=== PATIENT | male | born 1985 | race Two or more races ===

== ENCOUNTER 2020-05-19 19:55 | Emergency (ER) | payer MEDICAID ==
[~2020-05-19] VITALS: Ht 165.1 cm; Wt 71.0 kg
[2020-05-19 20:59] LABS: BASOPHILS % (AUTO) 0.8 % (0-1); EOSINOPHILS # (AUTO) 0.1 X10'3 (0-0.9); EOSINOPHILS % (AUTO) 1.1 % (0-6); HEMATOCRIT 46.2 % (42.0-52.0); HEMOGLOBIN 15.7 g/dl (14.0-17.9); LYMPHOCYTES % (AUTO) 43.5 % (21-51); MEAN CORPUSCULAR HEMOGLOBIN 31.4 PG (27.0-31.0); MEAN CORPUSCULAR HGB CONC 34.1 g/dL (33.0-36.5); MEAN CORPUSCULAR VOLUME 92.1 FL (78-98); MEAN PLATELET VOLUME 8.1 FL (7.4-10.4); MONOCYTES # (AUTO) 0.5 X10'3 (0-0.9); MONOCYTES % (AUTO) 10.3 % (2-12); NEUTROPHILS % (AUTO) 44.3 % (42-75); PLATELET COUNT 249 X10'3 (140-440); RED BLOOD COUNT 5.01 X10'6 (4.70-6.10); RED CELL DISTRIBUTION WIDTH 13.4 % (11.5-14.5); WHITE BLOOD COUNT 4.5 X10'3 (4.5-11.0)
[2020-05-19 21:13] LABS: GLUCOSE 117 MG/DL (70-104)
[2020-05-19 21:14] LABS: ALANINE AMINOTRANSFERASE 89 U/L (12-78); ALBUMIN 4.3 G/DL (3.4-5.0); ALKALINE PHOSPHATASE 120 IU/L (46-116); ANION GAP 15 (8-16); ASPARTATE AMINO TRANSFERASE 70 U/L (10-37); BILIRUBIN,TOTAL 0.9 MG/DL (0.1-1.0); BLOOD UREA NITROGEN 12 MG/DL (7-18); BUN/CREATININE RATIO 9.8 (5.4-32.0); CALCIUM 9.9 MG/DL (8.5-10.1); CHLORIDE 104 MMOL/L (99-107); CREATININE 1.22 MG/DL (0.60-1.10); POTASSIUM 3.3 MMOL/L (3.5-5.1); SODIUM 139 MMOL/L (135-145); TOTAL CARBON DIOXIDE 20.4 MMOL/L (24-32); TOTAL PROTEIN 8.6 G/DL (6.4-8.2); eGFR 67 ML/MIN
[2020-05-19] MEDS ORDERED: FAMO40TA73 PO (22:03)
[2020-05-19] MEDS ORDERED: famotidine/PF 10 mg/ml inj IV ONE (22:05)
[2020-05-19 22:56] LABS: LIPASE 282 U/L (73-393)
[2020-05-19 23:07] VITALS: BP 118/80
== END 2020-05-19 23:06 | disposition home or self-care (01) ==
LOC: ER 19:56
DX: R10.13 Epigastric pain (principal); R07.9 Chest pain, unspecified; R10.12 Left upper quadrant pain; F17.200 Nicotine dependence, unspecified, uncomplicated; F12.90 Cannabis use, unspecified, uncomplicated; Z90.89 Acquired absence of other organs; Z72.89 Other problems related to lifestyle; Z79.899 Other long term (current) drug therapy
CPT/HCPCS: 36415; 71045; 80053; 83690; 84484; 85025; 93005; 96374; 99285; J3490

== ENCOUNTER 2020-10-12 20:03 | Inpatient (IN) | payer MEDICAID ==
[~2020-10-12] VITALS: Ht 165.1 cm; Wt 77.3 kg
[~2020-10-12 20:03] MED LIST: FAMO40TA73 PO; piperacillin/tazo 4.5gm/100ml 100 ML IV ONE
[2020-10-12] MEDS ORDERED: normal saline 1000ML IV soln IVB ONE (20:20)
[2020-10-12] MEDS ORDERED: ondansetron/PF 4mg/2ml inj IV ONE (20:20)
[2020-10-12] MEDS ORDERED: ketorolac trometh. 30mg/ml inj. IV ONE (20:20)
[2020-10-12 20:31] LABS: BASOPHILS % (AUTO) 0.2 % (0-1); EOSINOPHILS % (AUTO) 0.2 % (0-6); HEMATOCRIT 44.9 % (42.0-52.0); LYMPHOCYTES # (AUTO) 2.3 X10'3 (1.1-4.8); MEAN CORPUSCULAR HEMOGLOBIN 30.6 PG (27.0-31.0); MEAN CORPUSCULAR HGB CONC 33.4 g/dL (33.0-36.5); MEAN CORPUSCULAR VOLUME 91.6 FL (78-98); MEAN PLATELET VOLUME 8.3 FL (7.4-10.4); MONOCYTES # (AUTO) 1.4 X10'3 (0-0.9); MONOCYTES % (AUTO) 8.7 % (2-12); NEUTROPHILS # (AUTO) 12.6 X10'3 (1.8-7.7); NEUTROPHILS % (AUTO) 76.9 % (42-75); PLATELET COUNT 291 X10'3 (140-440); RED CELL DISTRIBUTION WIDTH 13.2 % (11.5-14.5); WHITE BLOOD COUNT 16.4 X10'3 (4.5-11.0)
[2020-10-12 20:33] LABS: ALANINE AMINOTRANSFERASE 324 U/L (12-78); ALBUMIN 4.1 G/DL (3.4-5.0); ALBUMIN/GLOBULIN RATIO 1.1 (1.1-1.5); ALKALINE PHOSPHATASE 179 IU/L (46-116); ANION GAP 19 (8-16); ASPARTATE AMINO TRANSFERASE 517 U/L (10-37); BILIRUBIN,TOTAL 2.7 MG/DL (0.1-1.0); BLOOD UREA NITROGEN 14 MG/DL (7-18); CALCIUM 8.7 MG/DL (8.5-10.1); CHLORIDE 106 MMOL/L (99-107); CREATININE 1.17 MG/DL (0.60-1.10); GLUCOSE 194 MG/DL (70-104); SODIUM 143 MMOL/L (135-145); TOTAL CARBON DIOXIDE 17.6 MMOL/L (24-32); TOTAL PROTEIN 7.7 G/DL (6.4-8.2); eGFR 70 ML/MIN
[2020-10-12 20:39] LABS: POTASSIUM 2.8 MMOL/L (3.5-5.1)
[2020-10-12] MEDS ORDERED: potassium Cl 10 mEq/100mL bag IV ONE ×2 (20:45→22:55)
[2020-10-12] MEDS ORDERED: haloperidol lactate 5mg/ml inj IM ONE (21:00)
[2020-10-12 21:01] LABS: LIPASE > 30000 U/L (73-393)
[2020-10-12 21:21] LABS: CLARITY,URINE CLEAR (Clear); COLOR,URINE YELLOW (Yellow); GLUCOSE, URINE NEGATIVE (Neg); KETONES,URINE 40 mg/dl (Neg); LEUKOCYTE ESTERASE ,URINE NEGATIVE (Neg); NITRITES, URINE NEGATIVE (Neg); OCCULT BLOOD,URINE NEGATIVE (Neg); PROTEIN,URINE TRACE mg/dl (Neg)
[2020-10-12 21:28] LABS: UA COLLECTION TYPE CLN CATCH MIDSTREAM
[2020-10-12 21:32] LABS: BACTERIA,URINE NONE SEEN /HPF (Neg); MUCUS STRANDS NONE SEEN /LPF (Neg); RBC,URINE NONE SEEN /HPF (0-2); SQUAMOUS EPITHELIAL CELL,UR FEW /LPF (FEW); WBC,URINE 0-4 /HPF (0-4)
[2020-10-12] MEDS ORDERED: HYDROmorphone 1 mg/ml syringe IV ONE ×2 (21:55→23:25)
[2020-10-12] MEDS ORDERED: piperacillin/tazo 4.5gm/100ml 100 ML IV ONE (22:20)
[2020-10-12] MEDS ORDERED: NO HOME MEDS (22:22)
[2020-10-12] MEDS: dextrose 5%-lactated ringers 1,000 ML IV SCH (22:23)
[2020-10-12] MEDS ORDERED: ringers solution, lactated 1000ml IV soln IV ONE (22:50)
[2020-10-12] MEDS ORDERED: naloxone 0.4 mg/ml inj IV PRN (23:35)
[2020-10-12] MEDS ORDERED: potassium CL 10mEq/100ml bag 100 ML IV PRN (23:35)
[2020-10-12] MEDS ORDERED: acetaminophen 325mg tablet PO PRN (23:35)
[2020-10-12] MEDS ORDERED: normal saline 1000ml 1,000 ML IV SCH (23:35)
[2020-10-12] MEDS ORDERED: CADD PCA waste documentation MC PRN (23:35)
[2020-10-12] MEDS ORDERED: LORazepam 2 mg/ml vial IV PRN (23:35)
[2020-10-12] MEDS ORDERED: ondansetron/PF 4mg/2ml inj IV PRN (23:35)
[2020-10-12] MEDS ORDERED: thiamine inj. 100 MG in normal saline 100ml IV soln 100 ML IV ONE (23:35)
[2020-10-12] MEDS ORDERED: thiamine 100mg/ml 2ml inj. IV ONE (23:45)
--- NOTE | 2020-10-13 01:09 | NUR ---
ACKNOWLEDGED DILAUDID CADD ORDER. PT IS ASLEEP AND WILL NOT BE ABLE TO USE PUMP, WILL SET UP WHEN PT AWAKES AND/OR CO PAIN
--- NOTE | 2020-10-13 02:05 | NUR ---
PT 2 HR LACTIC 4.0. MD NOTIFIED. FLUID CHANGED FROM 1 L NS AT 100 ML/HR TO 1 L NS + 20K AT 100 ML/HR AND TO FOLLOW FLOOR PROTOCOL FOR K REPLACEMENT.
[2020-10-13] MEDS ORDERED: potassium Cl 20mEq in NS 1,000 ML IV SCH (02:10)
[2020-10-13] MEDS: potassium CL 10mEq/100ml bag 100 ML IV PRN ×2 (02:31→03:41)
[2020-10-13] MEDS: HYDROmorphone/NS 1 mg/ml CADD 50 ML IV SCH ×11 (03:00→23:00)
--- NOTE | 2020-10-13 03:47 | NUR ---
PT RESTING COMFORTABLY, APPEARS TO BE SLEEPING ON BACK. NO APPARENT DISTRESS. VS WNL, WILL CONTINUE TO MONITOR
[2020-10-13 04:32] LABS: BASOPHILS % (AUTO) 0.4 % (0-1); EOSINOPHILS % (AUTO) 0 % (0-6); HEMATOCRIT 43.1 % (42.0-52.0); HEMOGLOBIN 14.5 g/dl (14.0-17.9); LYMPHOCYTES # (AUTO) 0.4 X10'3 (1.1-4.8); LYMPHOCYTES % (AUTO) 3.9 % (21-51); MEAN CORPUSCULAR HEMOGLOBIN 31.1 PG (27.0-31.0); MEAN CORPUSCULAR HGB CONC 33.6 g/dL (33.0-36.5); MEAN CORPUSCULAR VOLUME 92.5 FL (78-98); MEAN PLATELET VOLUME 8.1 FL (7.4-10.4); MONOCYTES # (AUTO) 0.5 X10'3 (0-0.9); MONOCYTES % (AUTO) 4.6 % (2-12); NEUTROPHILS # (AUTO) 9.4 X10'3 (1.8-7.7); NEUTROPHILS % (AUTO) 91.1 % (42-75); PLATELET COUNT 247 X10'3 (140-440); RED BLOOD COUNT 4.66 X10'6 (4.70-6.10); RED CELL DISTRIBUTION WIDTH 13.1 % (11.5-14.5); WHITE BLOOD COUNT 10.3 X10'3 (4.5-11.0)
[2020-10-13 04:37] LABS: ALANINE AMINOTRANSFERASE 311 U/L (12-78); ALBUMIN 3.8 G/DL (3.4-5.0); ALKALINE PHOSPHATASE 176 IU/L (46-116); ANION GAP 11 (8-16); ASPARTATE AMINO TRANSFERASE 308 U/L (10-37); BILIRUBIN,TOTAL 1.9 MG/DL (0.1-1.0); BLOOD UREA NITROGEN 9 MG/DL (7-18); BUN/CREATININE RATIO 8.2 (5.4-32.0); CALCIUM 8.7 MG/DL (8.5-10.1); CHLORIDE 106 MMOL/L (99-107); GLUCOSE 198 MG/DL (70-104); POTASSIUM 4.5 MMOL/L (3.5-5.1); SODIUM 141 MMOL/L (135-145); TOTAL CARBON DIOXIDE 24.5 MMOL/L (24-32); TOTAL PROTEIN 7.5 G/DL (6.4-8.2); eGFR 75 ML/MIN
[2020-10-13 04:52] LABS: LIPASE 5163 U/L (73-393)
[2020-10-13] MEDS: piperacillin/tazo 3.375gm/50ml 50 ML IV SCH ×3 (06:53→21:32)
[2020-10-13] MEDS: K and/or MAG REPLACEMENT MC SCH ×2 (08:00→20:00)
--- NOTE | 2020-10-13 08:32 | NUR ---
Hospitalist paged for order clarification re: IVF
--- NOTE | 2020-10-13 10:21 | NUR ---
PT Resting comfortably in room. Awaiting inpatient bed. Remains NPO. Understands use of Dilaudid CADD pump, settings confirmed by this RN when I Assumed care this am.
--- NOTE | 2020-10-13 10:33 | NUR ---
Page sent to Dr Aguilar at this time regarding maintenence fluid
--- NOTE | 2020-10-13 10:34 | NUR ---
Dr Aguilar to DC IVF as appropriate per telephone call.
[2020-10-13] MEDS: dextrose 5%-lactated ringers 1,000 ML IV SCH ×2 (10:53→21:31)
--- NOTE | 2020-10-13 11:20 | NUR ---
Attempt x 2 to call MRI to find out time of pt's MRCP, no answer. MSG left
--- NOTE | 2020-10-13 11:33 | NUR ---
Pt to go to [facility] at 1200 today.
--- NOTE | 2020-10-13 11:50 | NUR ---
To MRI WITH tech, awake and alert
--- NOTE | 2020-10-13 12:38 | NUR ---
Returned to room from [facility], tolerated well. Placed back on continous pulse ox monitoring.
--- NOTE | 2020-10-13 16:58 | NUR ---
Received report from [facility] [place] [facility] [place]. Pt A&O x4. c/o 04/10 pain encouraged to use CADD. V/S 98.2, 92, 15, 97, 119/79.
[2020-10-13 17:00] VITALS: BP 119/79
[2020-10-13 18:00] VITALS: BP 130/82
--- NOTE | 2020-10-13 18:00 | NUR ---
Patient in room [facility]. I have received report from Kelsi MENJIVAR and had the opportunity to ask questions and assume patient care.
--- NOTE | 2020-10-13 18:24 | NUR ---
Problems reprioritized. Patient report given, questions answered & plan of care reviewed with OTTO Steward.
[2020-10-14] VITALS: BP 127/84
[2020-10-14] MEDS: HYDROmorphone/NS 1 mg/ml CADD 50 ML IV SCH ×12 (01:00→23:00)
[2020-10-14] MEDS: dextrose 5%-lactated ringers 1,000 ML IV SCH ×3 (04:05→16:51)
[2020-10-14] MEDS: piperacillin/tazo 3.375gm/50ml 50 ML IV SCH ×3 (05:20→21:13)
[2020-10-14 06:11] LABS: BASOPHILS % (AUTO) 0.1 % (0-1); EOSINOPHILS % (AUTO) 0.1 % (0-6); HEMATOCRIT 42.8 % (42.0-52.0); HEMOGLOBIN 14.5 g/dl (14.0-17.9); LYMPHOCYTES # (AUTO) 1.1 X10'3 (1.1-4.8); MEAN CORPUSCULAR HEMOGLOBIN 31.4 PG (27.0-31.0); MEAN CORPUSCULAR HGB CONC 33.8 g/dL (33.0-36.5); MEAN CORPUSCULAR VOLUME 92.9 FL (78-98); MEAN PLATELET VOLUME 8.3 FL (7.4-10.4); MONOCYTES % (AUTO) 8.4 % (2-12); NEUTROPHILS # (AUTO) 9.8 X10'3 (1.8-7.7); NEUTROPHILS % (AUTO) 82.4 % (42-75); PLATELET COUNT 226 X10'3 (140-440); RED CELL DISTRIBUTION WIDTH 13.1 % (11.5-14.5); WHITE BLOOD COUNT 11.9 X10'3 (4.5-11.0)
--- NOTE | 2020-10-14 06:22 | NUR ---
Problems reprioritized. Patient report given, questions answered & plan of care reviewed with Jennifer MENJIVAR.
[2020-10-14 06:44] LABS: ALANINE AMINOTRANSFERASE 158 U/L (12-78); ALBUMIN 3.1 G/DL (3.4-5.0); ALBUMIN/GLOBULIN RATIO 0.8 (1.1-1.5); ALKALINE PHOSPHATASE 124 IU/L (46-116); ANION GAP 8 (8-16); ASPARTATE AMINO TRANSFERASE 122 U/L (10-37); BILIRUBIN,TOTAL 2.8 MG/DL (0.1-1.0); BLOOD UREA NITROGEN 11 MG/DL (7-18); BUN/CREATININE RATIO 10.3 (5.4-32.0); CALCIUM 8.9 MG/DL (8.5-10.1); CHLORIDE 105 MMOL/L (99-107); CREATININE 1.07 MG/DL (0.60-1.10); GLUCOSE 150 MG/DL (70-104); POTASSIUM 3.8 MMOL/L (3.5-5.1); SODIUM 139 MMOL/L (135-145); TOTAL CARBON DIOXIDE 25.6 MMOL/L (24-32); TOTAL PROTEIN 6.8 G/DL (6.4-8.2); eGFR 78 ML/MIN
[2020-10-14 07:00] LABS: LIPASE 4383 U/L (73-393)
[2020-10-14 08:00] VITALS: BP 127/71
[2020-10-14] MEDS: K and/or MAG REPLACEMENT MC SCH ×2 (08:00→20:00)
--- NOTE | 2020-10-14 08:02 | NUR ---
PAGER ID: [phone] MESSAGE: PINA MANUEL 345A FYI PT. HR 120-130S AT REST. ETOH PT. CASTRO [id number]
[2020-10-14] MEDS ORDERED: dextrose ORAL solution 15 GM/59 ML bottle PO PRN ×2 (08:10)
[2020-10-14] MEDS ORDERED: dextrose 50%-water 50ml dispensing syringe IV PRN ×2 (08:10)
[2020-10-14] MEDS ORDERED: glucagon, human recombinant 1mg kit SUBCUT PRN (08:10)
[2020-10-14 08:31] LABS: HEMOGLOBIN A1C 5.7 % (4.5-6.2)
[2020-10-14] MEDS ORDERED: pneumococcal 23-VAL P-sac vacc 25 mcg/0.5ml vial IMVAC ONE (10:00)
[2020-10-14 11:00] VITALS: BP 125/76
--- NOTE | 2020-10-14 18:12 | NUR ---
Gave report to Nichelle MENJIVAR.
--- NOTE | 2020-10-14 18:42 | NUR ---
Patient in room [facility]. I have received report from Jennifer MENJIVAR and had the opportunity to ask questions and assume patient care.
[2020-10-14 20:07] VITALS: BP 131/77
[2020-10-14] MEDS ORDERED: LORazepam 2 mg/ml vial IV PRN (23:35)
[2020-10-15] VITALS: BP 116/74
[2020-10-15] MEDS: HYDROmorphone/NS 1 mg/ml CADD 50 ML IV SCH ×12 (01:00→23:00)
[2020-10-15] MEDS: dextrose 5%-lactated ringers 1,000 ML IV SCH ×2 (04:49→14:01)
[2020-10-15] MEDS: piperacillin/tazo 3.375gm/50ml 50 ML IV SCH ×3 (06:00→23:05)
[2020-10-15 06:28] LABS: BASOPHILS % (AUTO) 0.3 % (0-1); EOSINOPHILS % (AUTO) 0 % (0-6); HEMATOCRIT 39.5 % (42.0-52.0); HEMOGLOBIN 13.5 g/dl (14.0-17.9); LYMPHOCYTES # (AUTO) 0.7 X10'3 (1.1-4.8); MEAN CORPUSCULAR HEMOGLOBIN 31.8 PG (27.0-31.0); MEAN CORPUSCULAR HGB CONC 34.2 g/dL (33.0-36.5); MEAN CORPUSCULAR VOLUME 93.1 FL (78-98); MEAN PLATELET VOLUME 8.2 FL (7.4-10.4); MONOCYTES # (AUTO) 1.3 X10'3 (0-0.9); MONOCYTES % (AUTO) 9.5 % (2-12); NEUTROPHILS # (AUTO) 11.4 X10'3 (1.8-7.7); NEUTROPHILS % (AUTO) 85.2 % (42-75); PLATELET COUNT 217 X10'3 (140-440); RED BLOOD COUNT 4.24 X10'6 (4.70-6.10); RED CELL DISTRIBUTION WIDTH 12.8 % (11.5-14.5); WHITE BLOOD COUNT 13.4 X10'3 (4.5-11.0)
--- NOTE | 2020-10-15 06:34 | NUR ---
Problems reprioritized. Patient report given, questions answered & plan of care reviewed with Jennifer MENJIVAR.
[2020-10-15 06:39] LABS: ALANINE AMINOTRANSFERASE 104 U/L (12-78); ALBUMIN/GLOBULIN RATIO 0.7 (1.1-1.5); ALKALINE PHOSPHATASE 115 IU/L (46-116); ANION GAP 5 (8-16); ASPARTATE AMINO TRANSFERASE 96 U/L (10-37); BILIRUBIN,TOTAL 3.4 MG/DL (0.1-1.0); BLOOD UREA NITROGEN 10 MG/DL (7-18); BUN/CREATININE RATIO 10.8 (5.4-32.0); CALCIUM 9.2 MG/DL (8.5-10.1); CHLORIDE 101 MMOL/L (99-107); CREATININE 0.93 MG/DL (0.60-1.10); GLUCOSE 150 MG/DL (70-104); POTASSIUM 4.1 MMOL/L (3.5-5.1); SODIUM 134 MMOL/L (135-145); TOTAL CARBON DIOXIDE 27.9 MMOL/L (24-32); TOTAL PROTEIN 7.4 G/DL (6.4-8.2); eGFR > 90 ML/MIN
[2020-10-15 07:35] LABS: LIPASE 2739 U/L (73-393)
--- NOTE | 2020-10-15 07:55 | NUR ---
PAGER ID: [phone] MESSAGE: Atul WillA FYI Pt. has been having low grade fevers for over 12 hours that reached 101.3. One episode of emesis and c/o acid reflux. Jennifer [id number]
[2020-10-15 08:00] VITALS: BP 117/71
[2020-10-15] MEDS: K and/or MAG REPLACEMENT MC SCH ×2 (08:00→19:42)
[2020-10-15] MEDS ORDERED: piperacillin/tazo 3.375gm/50ml 50 ML IV SCH (08:45)
[2020-10-15 09:23] LABS: PARTIAL THROMBOPLASTIN TIME 32 SECONDS (22-32)
[2020-10-15] MEDS: pantoprazole 40 MG vial IV SCH (10:22)
[2020-10-15] MEDS ORDERED: magnesium hydroxide 30ml (MOM) UD suspension PO PRN (11:40)
[2020-10-15] MEDS ORDERED: mag hydrox/Alum hydrox/simeth 30ml oral suspension PO PRN (11:40)
[2020-10-15 11:46] VITALS: BP 119/78
--- NOTE | 2020-10-15 18:00 | NUR ---
Patient in room [facility] 344. I have received report from Jennifer MENJIVAR and had the opportunity to ask questions and assume patient care.
--- NOTE | 2020-10-15 18:35 | NUR ---
GAVE REPORT TO CEM MENJIVAR.
--- NOTE | 2020-10-15 19:09 | NUR ---
Patient in room [facility] 344. I have received report from Jennifer MENJIVAR and had the opportunity to ask questions and assume patient care.
[2020-10-15] MEDS: docusate sod 100mg capsule PO SCH (19:46)
[2020-10-15 20:00] VITALS: BP 131/91
[2020-10-16] VITALS: BP 111/77
[2020-10-16] MEDS: HYDROmorphone/NS 1 mg/ml CADD 50 ML IV SCH ×12 (01:00→23:00)
[2020-10-16] MEDS: dextrose 5%-lactated ringers 1,000 ML IV SCH ×2 (06:05→13:30)
[2020-10-16 06:09] LABS: BASOPHILS % (AUTO) 0.2 % (0-1); EOSINOPHILS % (AUTO) 0.2 % (0-6); HEMATOCRIT 36.5 % (42.0-52.0); HEMOGLOBIN 12.4 g/dl (14.0-17.9); LYMPHOCYTES # (AUTO) 0.9 X10'3 (1.1-4.8); LYMPHOCYTES % (AUTO) 9.2 % (21-51); MEAN CORPUSCULAR HEMOGLOBIN 31.6 PG (27.0-31.0); MEAN CORPUSCULAR VOLUME 92.9 FL (78-98); MEAN PLATELET VOLUME 8.2 FL (7.4-10.4); MONOCYTES # (AUTO) 1.2 X10'3 (0-0.9); NEUTROPHILS % (AUTO) 78.4 % (42-75); PLATELET COUNT 225 X10'3 (140-440); RED BLOOD COUNT 3.93 X10'6 (4.70-6.10); RED CELL DISTRIBUTION WIDTH 12.8 % (11.5-14.5); WHITE BLOOD COUNT 10.2 X10'3 (4.5-11.0)
[2020-10-16 06:20] LABS: ALANINE AMINOTRANSFERASE 66 U/L (12-78); ALBUMIN 2.5 G/DL (3.4-5.0); ALBUMIN/GLOBULIN RATIO 0.6 (1.1-1.5); ALKALINE PHOSPHATASE 101 IU/L (46-116); ANION GAP 7 (8-16); ASPARTATE AMINO TRANSFERASE 49 U/L (10-37); BILIRUBIN,TOTAL 2.6 MG/DL (0.1-1.0); BLOOD UREA NITROGEN 11 MG/DL (7-18); CALCIUM 8.7 MG/DL (8.5-10.1); CHLORIDE 101 MMOL/L (99-107); GLUCOSE 154 MG/DL (70-104); LIPASE 837 U/L (73-393); POTASSIUM 3.9 MMOL/L (3.5-5.1); SODIUM 136 MMOL/L (135-145); TOTAL CARBON DIOXIDE 28.5 MMOL/L (24-32); TOTAL PROTEIN 6.9 G/DL (6.4-8.2); eGFR 84 ML/MIN
--- NOTE | 2020-10-16 06:25 | NUR ---
Problems reprioritized. Patient report given, questions answered & plan of care reviewed with Kayla MENJIVAR.
--- NOTE | 2020-10-16 06:25 | NUR ---
Patient in room [facility]. I have received report from OTTO Sloan and bonilla Friedman RN and had the opportunity to ask questions and assume patient care.
[2020-10-16] MEDS: piperacillin/tazo 3.375gm/50ml 50 ML IV SCH ×3 (06:36→21:44)
[2020-10-16 07:00] VITALS: BP 116/77
[2020-10-16] MEDS: K and/or MAG REPLACEMENT MC SCH ×2 (08:00→19:56)
[2020-10-16] MEDS: pantoprazole 40 MG vial IV SCH (09:31)
[2020-10-16] MEDS: docusate sod 100mg capsule PO SCH ×2 (09:31→19:37)
[2020-10-16 11:00] VITALS: BP 141/84
--- NOTE | 2020-10-16 18:00 | NUR ---
Patient in room [facility]. I have received report from Kayla MENJIVAR and had the opportunity to ask questions and assume patient care.
--- NOTE | 2020-10-16 18:28 | NUR ---
Problems reprioritized. Patient report given, questions answered & plan of care reviewed with OTTO Sloan and bonilla Friedman RN.
--- NOTE | 2020-10-16 18:42 | NUR ---
Patient in room [facility]. I have received report from Kayla MENJIVAR and had the opportunity to ask questions and assume patient care.
[2020-10-16 19:24] VITALS: BP 134/76
[2020-10-16] MEDS: lactobacillus rhamnosus 10,000 MMU CELLS/CAPSULE PO SCH (19:37)
[2020-10-16 23:16] VITALS: BP 121/80
[2020-10-16] MEDS ORDERED: LORazepam 1 MG tablet PO PRN (23:35)
[2020-10-17] MEDS: dextrose 5%-lactated ringers 1,000 ML IV SCH ×3 (00:40→21:45)
[2020-10-17] MEDS: HYDROmorphone/NS 1 mg/ml CADD 50 ML IV SCH ×5 (00:53→09:00)
[2020-10-17 06:23] LABS: BASOPHILS % (AUTO) 0.5 % (0-1); EOSINOPHILS # (AUTO) 0.1 X10'3 (0-0.9); EOSINOPHILS % (AUTO) 0.8 % (0-6); HEMATOCRIT 36.3 % (42.0-52.0); HEMOGLOBIN 12.2 g/dl (14.0-17.9); LYMPHOCYTES % (AUTO) 11.6 % (21-51); MEAN CORPUSCULAR HEMOGLOBIN 31.1 PG (27.0-31.0); MEAN CORPUSCULAR HGB CONC 33.6 g/dL (33.0-36.5); MEAN CORPUSCULAR VOLUME 92.8 FL (78-98); MEAN PLATELET VOLUME 7.9 FL (7.4-10.4); MONOCYTES # (AUTO) 1.1 X10'3 (0-0.9); MONOCYTES % (AUTO) 12.9 % (2-12); NEUTROPHILS # (AUTO) 6.4 X10'3 (1.8-7.7); NEUTROPHILS % (AUTO) 74.2 % (42-75); PLATELET COUNT 281 X10'3 (140-440); RED BLOOD COUNT 3.91 X10'6 (4.70-6.10); WHITE BLOOD COUNT 8.6 X10'3 (4.5-11.0)
--- NOTE | 2020-10-17 06:27 | NUR ---
Problems reprioritized. Patient report given, questions answered & plan of care reviewed with MARTINA MENJIVAR.
--- NOTE | 2020-10-17 06:31 | NUR ---
Problems reprioritized. Patient report given, questions answered & plan of care reviewed with Megha MENJIVAR.
--- NOTE | 2020-10-17 06:32 | NUR ---
Patient in room [facility]. I have received report from Nathalia RN and OTTO Wasserman and had the opportunity to ask questions and assume patient care.
[2020-10-17 06:37] LABS: ALANINE AMINOTRANSFERASE 56 U/L (12-78); ALBUMIN 2.6 G/DL (3.4-5.0); ALBUMIN/GLOBULIN RATIO 0.6 (1.1-1.5); ALKALINE PHOSPHATASE 117 IU/L (46-116); ANION GAP 7 (8-16); ASPARTATE AMINO TRANSFERASE 38 U/L (10-37); BILIRUBIN,TOTAL 1.9 MG/DL (0.1-1.0); BLOOD UREA NITROGEN 8 MG/DL (7-18); BUN/CREATININE RATIO 8.4 (5.4-32.0); CALCIUM 8.9 MG/DL (8.5-10.1); CHLORIDE 102 MMOL/L (99-107); CREATININE 0.95 MG/DL (0.60-1.10); GLUCOSE 179 MG/DL (70-104); LIPASE 684 U/L (73-393); POTASSIUM 3.3 MMOL/L (3.5-5.1); SODIUM 135 MMOL/L (135-145); TOTAL CARBON DIOXIDE 25.8 MMOL/L (24-32); TOTAL PROTEIN 7.3 G/DL (6.4-8.2); eGFR 89 ML/MIN
[2020-10-17 07:00] VITALS: BP 131/89
[2020-10-17] MEDS: docusate sod 100mg capsule PO SCH ×2 (07:21→20:47)
[2020-10-17] MEDS: lactobacillus rhamnosus 10,000 MMU CELLS/CAPSULE PO SCH ×2 (07:22→20:47)
[2020-10-17] MEDS: pantoprazole 40 MG vial IV SCH (07:22)
[2020-10-17] MEDS: piperacillin/tazo 3.375gm/50ml 50 ML IV SCH ×3 (07:22→21:46)
[2020-10-17] MEDS: K and/or MAG REPLACEMENT MC SCH ×2 (08:00→20:00)
[2020-10-17] MEDS ORDERED: magnesium 4gm in 100ml NS 100 ML IV PRN (10:45)
[2020-10-17] MEDS ORDERED: magnesium Cl slow-release 64mg tablet PO PRN (10:45)
[2020-10-17] MEDS ORDERED: potassium Cl 40MEQ/1/2NS 520ml 520 ML IV PRN (10:45)
[2020-10-17] MEDS ORDERED: potassium Cl 20 mEq SR tablet PO PRN (10:45)
[2020-10-17] MEDS ORDERED: HYDROcodone/acetaminophen 5mg/325mg tablet PO PRN ×2 (10:45)
[2020-10-17] MEDS: potassium Cl 20 mEq SR tablet PO PRN ×3 (11:04→20:47)
[2020-10-17 11:19] VITALS: BP 126/79
--- NOTE | 2020-10-17 13:39 | NUR ---
This RN returned from lunch and rounded on patient's. Noticed patient tray in front of patient was not a full liquid diet. Patient had consumed more than 50% of meal on tray. When asked PCT whey did patient get heart healthy tray and not full liquid PCT, Leandro stated that slip had patient's name and heart healthy diet on it. Found meal slip and did find that patient meal slip stated heart healthy diet. Called down to dietary and spoke to Shelby, court magistrate. Let her know that there had not been a heart healthy diet ordered for patient and that it was to be full liquid diet. Shelby agrees and states she will address this with kitchen. Patient denies any pain or discomfort at this time. Will continue to monitor.
--- NOTE | 2020-10-17 15:43 | NUR ---
Nutrition consult: Pt admit for acute pancreatitis r/t gallstones or alcohol or both per H&P. Pt seen at bedside for written and verbal pancreatitis nutrition therapy education. Pt reports hx of pancreatitis about a year ago which pt believes was r/t EtOH. Pt reports he used to drink alcohol during the week however now only drinks it on the weekends as of about six months ago. RD encouraged discontinuation of EtOH intake given admitting dx. Pt states he has a lot of fat in his diet at home. RD encouraged reducing fat intake. Pt verbalized understanding to education provided. All of patient's questions were answered at this time. RD contact information provided. Pt endorses a good appetite and denies food allergies. Pt on a full liquid diet however received a heart healthy meal tray for lunch of which pt consumed 100% of. Pt denies any pain following PO intake of meal. Lipase currently 684 down from >30,000 on admit. D/w RN recommendation to advance to low fat diet with MD approval given lipase trending towards normal limits and pt with no c/o pain following PO intake of meal. Pt denies any difficulty chewing/swallowing or constipation/diarrhea. Will continue to follow. Recommendations: 1) Advance to low fat diet as medically indicated 2) Routine bowel care 3) Scaled weights per rx Addendum: 10/17/20 at [address] Amended: Links added.
--- NOTE | 2020-10-17 18:22 | NUR ---
Patient in room [facility]. I have received report from MARTINA MENJIVAR and had the opportunity to ask questions and assume patient care.
--- NOTE | 2020-10-17 18:28 | NUR ---
Problems reprioritized. Patient report given, questions answered & plan of care reviewed with OTTO Melendez.
[2020-10-17 20:00] VITALS: BP 123/78
[2020-10-17] MEDS ORDERED: K and/or MAG REPLACEMENT MC SCH (20:00)
[2020-10-18] VITALS: BP 140/82
--- NOTE | 2020-10-18 06:14 | NUR ---
Problems reprioritized. Patient report given, questions answered & plan of care reviewed with JONELLE MENJIVAR.
--- NOTE | 2020-10-18 06:45 | NUR ---
Patient in room [facility]. I have received report from OTTO Melendez and had the opportunity to ask questions and assume patient care.
[2020-10-18] MEDS: pantoprazole 40 MG vial IV SCH (07:00)
[2020-10-18] MEDS: piperacillin/tazo 3.375gm/50ml 50 ML IV SCH (07:06)
[2020-10-18] MEDS: docusate sod 100mg capsule PO SCH (07:06)
[2020-10-18] MEDS: lactobacillus rhamnosus 10,000 MMU CELLS/CAPSULE PO SCH (07:06)
[2020-10-18 08:00] VITALS: BP 125/89
[2020-10-18 08:34] LABS: POTASSIUM 3.8 MMOL/L (3.5-5.1)
[2020-10-18 10:26] LABS: ALBUMIN 2.8 G/DL (3.4-5.0); ALBUMIN/GLOBULIN RATIO 0.5 (1.1-1.5); ANION GAP 12 (8-16); ASPARTATE AMINO TRANSFERASE 36 U/L (10-37); BILIRUBIN,TOTAL 1.4 MG/DL (0.1-1.0); BLOOD UREA NITROGEN 9 MG/DL (7-18); BUN/CREATININE RATIO 10.3 (5.4-32.0); CALCIUM 9.3 MG/DL (8.5-10.1); CHLORIDE 101 MMOL/L (99-107); CREATININE 0.87 MG/DL (0.60-1.10); GLUCOSE 156 MG/DL (70-104); SODIUM 135 MMOL/L (135-145); TOTAL CARBON DIOXIDE 22.4 MMOL/L (24-32); TOTAL PROTEIN 7.9 G/DL (6.4-8.2); eGFR > 90 ML/MIN
[2020-10-18 10:27] LABS: ALANINE AMINOTRANSFERASE 53 U/L (12-78); ALKALINE PHOSPHATASE 148 IU/L (46-116); LIPASE 863 U/L (73-393)
[2020-10-18] MEDS ORDERED: AMOX-580 PO (11:02)
[2020-10-18] MEDS ORDERED: HYDR-3964 PO (12:54)
--- NOTE | 2020-10-18 15:24 | NUR ---
Pt discharged home in stable condition. discharge and medication instructions given to pt. IV removed. Pt was escorted on w/c to main lobby. Left the hospital via private vehicle accompanied by family member.
== END 2020-10-18 14:00 | disposition home or self-care (01) | DRG 720 ==
LOC: ER 20:04 → ED HOLD 23:31 → SUR 3N 10-13 16:51
PROVIDERS: ADMIT Internal Medicine; ATTEND Internal Medicine
DX: A41.9 Sepsis, unspecified organism (principal); K85.90 Acute pancreatitis without necrosis or infection, unspecified; F10.10 Alcohol abuse, uncomplicated; F12.90 Cannabis use, unspecified, uncomplicated; E87.1 Hypo-osmolality and hyponatremia; E87.6 Hypokalemia; K80.12 Calculus of gallbladder with acute and chronic cholecystitis without obstruction; Z90.49 Acquired absence of other specified parts of digestive tract
CPT/HCPCS: 36415; 71045; 74176; 74181; 76700; 80053; 81001; 82948; 83036; 83605; 83690; 84145; 84443; 85025; 85610; 85730; 87040; 87081; 93005; 96374; 96375; 99285; C9113; G0378; J1170; J1630; J1885; J2405; J2543; J3411; J3480; J7030; J7120; J7121

== ENCOUNTER 2021-04-20 18:35 | Inpatient (IN) | payer MEDICAID ==
[~2021-04-20] VITALS: Ht 167.6 cm; Wt 55.0 kg
[~2021-04-20 18:35] MED LIST changes: +AMOX-580 PO; -FAMO40TA73 PO; +HYDR-3964 PO; -piperacillin/tazo 4.5gm/100ml 100 ML IV ONE
[2021-04-20 19:10] LABS: CLARITY,URINE CLEAR (Clear); COLOR,URINE YELLOW (Yellow); GLUCOSE, URINE NEGATIVE (Neg); KETONES,URINE TRACE mg/dl (Neg); LEUKOCYTE ESTERASE ,URINE NEGATIVE (Neg); NITRITES, URINE NEGATIVE (Neg); OCCULT BLOOD,URINE NEGATIVE (Neg); PROTEIN,URINE NEGATIVE (Neg)
[2021-04-20 19:10] LABS: BASOPHILS % (AUTO) 0.4 % (0-1); EOSINOPHILS % (AUTO) 0.5 % (0-6); HEMATOCRIT 44.1 % (42.0-52.0); HEMOGLOBIN 15.1 g/dl (14.0-17.9); LYMPHOCYTES # (AUTO) 1.1 X10'3 (1.1-4.8); LYMPHOCYTES % (AUTO) 16.2 % (21-51); MEAN CORPUSCULAR HEMOGLOBIN 31.5 PG (27.0-31.0); MEAN CORPUSCULAR HGB CONC 34.3 g/dL (33.0-36.5); MEAN PLATELET VOLUME 7.6 FL (7.4-10.4); MONOCYTES # (AUTO) 0.5 X10'3 (0-0.9); MONOCYTES % (AUTO) 7.1 % (2-12); NEUTROPHILS # (AUTO) 5.3 X10'3 (1.8-7.7); NEUTROPHILS % (AUTO) 75.8 % (42-75); PLATELET COUNT 311 X10'3 (140-440)
[2021-04-20 19:15] LABS: UA COLLECTION TYPE CLN CATCH MIDSTREAM
[2021-04-20] MEDS ORDERED: normal saline 1000ml 1,000 ML IV ONE (19:15)
[2021-04-20 19:26] LABS: ALANINE AMINOTRANSFERASE 131 U/L (12-78); ALBUMIN 4.1 G/DL (3.4-5.0); ALBUMIN/GLOBULIN RATIO 0.9 (1.1-1.5); ALKALINE PHOSPHATASE 289 IU/L (46-116); ANION GAP 13 (8-16); ASPARTATE AMINO TRANSFERASE 281 U/L (10-37); BILIRUBIN,TOTAL 1.5 MG/DL (0.1-1.0); BLOOD UREA NITROGEN 11 MG/DL (7-18); BUN/CREATININE RATIO 9.3 (5.4-32.0); CHLORIDE 102 MMOL/L (99-107); CREATININE 1.18 MG/DL (0.60-1.10); GLUCOSE 128 MG/DL (70-104); POTASSIUM 4.1 MMOL/L (3.5-5.1); SODIUM 140 MMOL/L (135-145); TOTAL CARBON DIOXIDE 25.5 MMOL/L (24-32); TOTAL PROTEIN 8.6 G/DL (6.4-8.2); eGFR 69 ML/MIN
[2021-04-20] MEDS ORDERED: ondansetron/PF 4mg/2ml inj IV ONE ×2 (19:35→21:20)
[2021-04-20 19:54] LABS: LIPASE 19302 U/L (73-393)
[2021-04-20] MEDS ORDERED: morphine 4 MG/ML inj SYRINge IV ONE (20:05)
[2021-04-20] MEDS ORDERED: temazepam 15mg capsule PO PRN (21:00)
[2021-04-20] MEDS ORDERED: normal saline 1000ML IV soln IVB ONE (21:20)
[2021-04-20] MEDS ORDERED: pantoprazole 40 MG vial IV ONE (21:20)
[2021-04-20] MEDS ORDERED: thiamine 100mg/ml 2ml inj. IV ONE (21:50)
[2021-04-20] MEDS ORDERED: potassium Cl 40MEQ/1/2NS 520ml 520 ML IV PRN ×2 (21:50)
[2021-04-20] MEDS ORDERED: HYDROmorphone inj. 0.5 MG/0.5 ML DISP.SYRIN IV PRN (21:50)
[2021-04-20] MEDS ORDERED: acetaminophen 325mg tablet PO PRN ×2 (21:50)
[2021-04-20] MEDS ORDERED: magnesium 2GM in 50ml NS 50 ML IV PRN (21:50)
[2021-04-20] MEDS ORDERED: dextrose 50%-water 50ml dispensing syringe IV PRN (21:50)
[2021-04-20] MEDS ORDERED: HYDROcodone/acetaminophen 5mg/325mg tablet PO PRN (21:50)
[2021-04-20] MEDS ORDERED: magnesium 4gm in 100ml NS 100 ML IV PRN (21:50)
[2021-04-20] MEDS ORDERED: magnesium hydroxide 30ml (MOM) UD suspension PO PRN (21:50)
[2021-04-20] MEDS ORDERED: mag hydrox/Alum hydrox/simeth 30ml oral suspension PO PRN (21:50)
[2021-04-20] MEDS ORDERED: morphine 2 MG/ML inj. syringe IV PRN (21:50)
[2021-04-20] MEDS ORDERED: magnesium Cl slow-release 64mg tablet PO PRN (21:50)
[2021-04-20] MEDS ORDERED: ondansetron/PF 4mg/2ml inj IV PRN (21:50)
[2021-04-20] MEDS ORDERED: LORazepam 2 mg/ml vial IV PRN (21:50)
[2021-04-20] MEDS ORDERED: metoclopramide 5 mg/ml inj IV PRN (21:50)
[2021-04-20] MEDS ORDERED: potassium Cl 20 mEq SR tablet PO PRN ×2 (21:50)
[2021-04-20] MEDS ORDERED: LORazepam 1 MG tablet PO PRN (21:50)
[2021-04-20] MEDS: pantoprazole 40 MG vial IV SCH (22:05)
[2021-04-20] MEDS ORDERED: iohexol 300mg/ml 100ml inj. ONE (22:08)
--- NOTE | 2021-04-20 22:39 | NUR ---
Protonix given earlier by ER MD order. Scheduled order non- administered as a duplicate.
[2021-04-20] MEDS ORDERED: NO HOME MEDS (22:40)
[2021-04-20] MEDS: morphine 2 MG/ML inj. syringe IV PRN (23:40)
[2021-04-20] MEDS: normal saline 1000ml 1,000 ML IV SCH (23:40)
[2021-04-21] MEDS: piperacillin/tazo 3.375gm/50ml 50 ML IV SCH ×4 (00:27→23:26)
[2021-04-21] MEDS: normal saline 1000ml 1,000 ML IV SCH ×4 (02:50→18:03)
[2021-04-21] MEDS: morphine 2 MG/ML inj. syringe IV PRN ×3 (06:33→23:24)
[2021-04-21] MEDS: heparin, porcine 5000 units/ml vial SQ SCH ×2 (08:00→21:17)
[2021-04-21] MEDS: K and/or MAG REPLACEMENT MC SCH ×2 (08:00→21:24)
[2021-04-21 08:25] LABS: BASOPHILS % (AUTO) 0.4 % (0-1); EOSINOPHILS % (AUTO) 0.2 % (0-6); HEMOGLOBIN 13.7 g/dl (14.0-17.9); LYMPHOCYTES # (AUTO) 1.1 X10'3 (1.1-4.8); LYMPHOCYTES % (AUTO) 12.9 % (21-51); MEAN CORPUSCULAR HEMOGLOBIN 31.6 PG (27.0-31.0); MEAN CORPUSCULAR HGB CONC 34.1 g/dL (33.0-36.5); MEAN CORPUSCULAR VOLUME 92.7 FL (78-98); MEAN PLATELET VOLUME 7.5 FL (7.4-10.4); MONOCYTES # (AUTO) 0.5 X10'3 (0-0.9); MONOCYTES % (AUTO) 6.3 % (2-12); NEUTROPHILS # (AUTO) 6.6 X10'3 (1.8-7.7); NEUTROPHILS % (AUTO) 80.2 % (42-75); PLATELET COUNT 285 X10'3 (140-440); RED BLOOD COUNT 4.32 X10'6 (4.70-6.10); RED CELL DISTRIBUTION WIDTH 13.8 % (11.5-14.5); WHITE BLOOD COUNT 8.3 X10'3 (4.5-11.0)
[2021-04-21 08:39] LABS: ALANINE AMINOTRANSFERASE 96 U/L (12-78); ALBUMIN 3.3 G/DL (3.4-5.0); ALBUMIN/GLOBULIN RATIO 0.9 (1.1-1.5); ALKALINE PHOSPHATASE 223 IU/L (46-116); ANION GAP 8 (8-16); ASPARTATE AMINO TRANSFERASE 71 U/L (10-37); BILIRUBIN,TOTAL 1.7 MG/DL (0.1-1.0); BLOOD UREA NITROGEN 8 MG/DL (7-18); CALCIUM 8.6 MG/DL (8.5-10.1); CHLORIDE 104 MMOL/L (99-107); CHOL/HDL RATIO 2.5 (0.00-4.99); CHOLESTEROL 171 MG/DL (0-200); CREATININE 1.14 MG/DL (0.60-1.10); GLUCOSE 120 MG/DL (70-104); HDL CHOLESTEROL 69 MG/DL (35-60); LDL CHOLESTEROL 87 MG/DL (50-100); MAGNESIUM 1.9 MG/DL (1.5-2.4); POTASSIUM 4.3 MMOL/L (3.5-5.1); SODIUM 140 MMOL/L (135-145); TOTAL CARBON DIOXIDE 28.2 MMOL/L (24-32); TRIGLYCERIDES 60 MG/DL (20-135); eGFR 72 ML/MIN
[2021-04-21] MEDS: pantoprazole 40 MG vial IV SCH (08:48)
--- NOTE | 2021-04-21 14:22 | NUR ---
pt went to use restroom ,now back to bed .able to ambulate by himself with iv pole.
--- NOTE | 2021-04-21 19:15 | NUR ---
Received report from OTTO Garcia. Awaiting patient arrival to the floor.
[2021-04-21] MEDS ORDERED: thiamine inj. 100 MG in normal saline 100ml IV soln 100 ML IV ONE (19:25)
[2021-04-21] MEDS ORDERED: LORazepam 2 mg/ml vial IV PRN (19:25)
[2021-04-21] MEDS ORDERED: haloperidol lactate 5mg/ml inj IM PRN (19:25)
[2021-04-21] MEDS ORDERED: haloperidol 5mg tablet PO PRN (19:25)
--- NOTE | 2021-04-21 19:30 | NUR ---
Patient arrived to the floor via gurney accompanied by AGRICULTURAL AGENT. Placed in room 3012B. Patient awake and alert on room air, in no apparent distress. Call light and items of frequent use within reach. Will continue to monitor.
[2021-04-21 19:45] VITALS: BP 126/81
[2021-04-21] MEDS: dextrose 5%-normal saline 1,000 ML IV SCH (21:22)
[2021-04-22] MEDS: dextrose 5%-normal saline 1,000 ML IV SCH ×4 (05:18→22:53)
[2021-04-22 06:00] VITALS: BP 115/68
--- NOTE | 2021-04-22 06:30 | NUR ---
Problems reprioritized. Patient report given, questions answered & plan of care reviewed with OTTO Huizar.
[2021-04-22 07:37] LABS: BASOPHILS % (AUTO) 0.5 % (0-1); EOSINOPHILS # (AUTO) 0.2 X10'3 (0-0.9); EOSINOPHILS % (AUTO) 2.9 % (0-6); HEMATOCRIT 40.4 % (42.0-52.0); HEMOGLOBIN 13.7 g/dl (14.0-17.9); LYMPHOCYTES # (AUTO) 1.1 X10'3 (1.1-4.8); LYMPHOCYTES % (AUTO) 18.7 % (21-51); MEAN CORPUSCULAR HEMOGLOBIN 31.4 PG (27.0-31.0); MEAN CORPUSCULAR VOLUME 92.4 FL (78-98); MEAN PLATELET VOLUME 7.8 FL (7.4-10.4); MONOCYTES # (AUTO) 0.7 X10'3 (0-0.9); MONOCYTES % (AUTO) 11.4 % (2-12); NEUTROPHILS % (AUTO) 66.5 % (42-75); PLATELET COUNT 263 X10'3 (140-440); RED BLOOD COUNT 4.37 X10'6 (4.70-6.10)
[2021-04-22] MEDS: heparin, porcine 5000 units/ml vial SQ SCH ×2 (07:59→21:05)
[2021-04-22 08:00] LABS: ALANINE AMINOTRANSFERASE 62 U/L (12-78); ALBUMIN 3.2 G/DL (3.4-5.0); ALBUMIN/GLOBULIN RATIO 0.8 (1.1-1.5); ALKALINE PHOSPHATASE 189 IU/L (46-116); AMYLASE 191 U/L (25-115); ANION GAP 10 (8-16); ASPARTATE AMINO TRANSFERASE 28 U/L (10-37); BILIRUBIN,TOTAL 2.3 MG/DL (0.1-1.0); BLOOD UREA NITROGEN 10 MG/DL (7-18); BUN/CREATININE RATIO 9.5 (5.4-32.0); CALCIUM 8.9 MG/DL (8.5-10.1); CHLORIDE 101 MMOL/L (99-107); CREATININE 1.05 MG/DL (0.60-1.10); GLUCOSE 96 MG/DL (70-104); LIPASE 760 U/L (73-393); MAGNESIUM 1.9 MG/DL (1.5-2.4); PHOSPHORUS 3.1 MG/DL (2.3-4.5); POTASSIUM 3.5 MMOL/L (3.5-5.1); SODIUM 137 MMOL/L (135-145); TOTAL CARBON DIOXIDE 26.3 MMOL/L (24-32); TOTAL PROTEIN 7.3 G/DL (6.4-8.2); eGFR 79 ML/MIN
[2021-04-22] MEDS ORDERED: folic acid inj. 2 MG, thiamine inj. 100 MG, MVI, adult No.4 with vit. K 10 ML in dextro... IV SCH ×4 (08:00)
[2021-04-22] MEDS: K and/or MAG REPLACEMENT MC SCH ×2 (08:00→20:00)
[2021-04-22] MEDS: pantoprazole 40 MG vial IV SCH (08:18)
[2021-04-22] MEDS: piperacillin/tazo 3.375gm/50ml 50 ML IV SCH ×2 (08:18→16:27)
[2021-04-22 10:56] LABS: CLARITY,URINE CLEAR (Clear); COLOR,URINE YELLOW (Yellow); GLUCOSE, URINE NEGATIVE (Neg); KETONES,URINE 40 mg/dl (Neg); LEUKOCYTE ESTERASE ,URINE NEGATIVE (Neg); NITRITES, URINE NEGATIVE (Neg); OCCULT BLOOD,URINE NEGATIVE (Neg); PH,URINE 6.5 (4.8-8.0); PROTEIN,URINE NEGATIVE (Neg)
[2021-04-22 10:59] LABS: UA COLLECTION TYPE NON-SPECIFIED; URINE AMPHETAMINE SCREEN NEGATIVE (Neg); URINE BARBITUATE SCREEN NEGATIVE (Neg); URINE BENZODIAZEPINES SCREEN NEGATIVE (Neg); URINE CANNABINOID SCREEN NEGATIVE (Neg); URINE COCAINE SCREEN NEGATIVE (Neg); URINE METHADONE SCREEN NEGATIVE (Neg); URINE OPIATE SCREEN POSITIVE (Neg); URINE PHENCYCLIDINE SCREEN NEGATIVE (Neg)
[2021-04-22] MEDS: thiamine 100mg tablet PO SCH (11:46)
[2021-04-22] MEDS: multivitamins, therapeutics tablet PO SCH (11:46)
[2021-04-22] MEDS: morphine 2 MG/ML inj. syringe IV PRN (11:47)
[2021-04-22] MEDS: folic acid 1mg tablet PO SCH (11:51)
--- NOTE | 2021-04-22 18:39 | NUR ---
Problems reprioritized. Patient report given, questions answered & plan of care reviewed with Juana MENJIVAR.
--- NOTE | 2021-04-22 18:40 | NUR ---
Patient in room [facility]. I have received report from MARIYA MENJIVAR and had the opportunity to ask questions and assume patient care.
[2021-04-22 20:00] VITALS: BP 107/72
[2021-04-22] MEDS: HYDROcodone/acetaminophen 10/325mg tab PO PRN (21:44)
[2021-04-23] VITALS (21 sets, daily range): BP systolic 90–132; BP diastolic 13–91
[2021-04-23] MEDS: piperacillin/tazo 3.375gm/50ml 50 ML IV SCH ×3 (00:29→23:46)
--- NOTE | 2021-04-23 06:30 | NUR ---
Problems reprioritized. Patient report given, questions answered & plan of care reviewed with RADHA MENJIVAR.
[2021-04-23 06:45] LABS: BASOPHILS % (AUTO) 0.9 % (0-1); EOSINOPHILS # (AUTO) 0.3 X10'3 (0-0.9); EOSINOPHILS % (AUTO) 5.5 % (0-6); HEMATOCRIT 38.2 % (42.0-52.0); HEMOGLOBIN 12.8 g/dl (14.0-17.9); LYMPHOCYTES # (AUTO) 1.6 X10'3 (1.1-4.8); LYMPHOCYTES % (AUTO) 31.9 % (21-51); MEAN CORPUSCULAR HEMOGLOBIN 31.2 PG (27.0-31.0); MEAN CORPUSCULAR HGB CONC 33.5 g/dL (33.0-36.5); MEAN CORPUSCULAR VOLUME 93.1 FL (78-98); MEAN PLATELET VOLUME 7.8 FL (7.4-10.4); MONOCYTES # (AUTO) 0.7 X10'3 (0-0.9); MONOCYTES % (AUTO) 13.6 % (2-12); NEUTROPHILS # (AUTO) 2.4 X10'3 (1.8-7.7); NEUTROPHILS % (AUTO) 48.1 % (42-75); PLATELET COUNT 262 X10'3 (140-440); RED CELL DISTRIBUTION WIDTH 13.8 % (11.5-14.5)
--- NOTE | 2021-04-23 06:54 | NUR ---
Patient in room [facility] 4012B. I have received report from PIA PALACIO RN and had the opportunity to ask questions and assume patient care.
[2021-04-23 07:20] LABS: ALANINE AMINOTRANSFERASE 45 U/L (12-78); ALBUMIN/GLOBULIN RATIO 0.8 (1.1-1.5); ALKALINE PHOSPHATASE 147 IU/L (46-116); AMYLASE 127 U/L (25-115); ANION GAP 8 (8-16); ASPARTATE AMINO TRANSFERASE 19 U/L (10-37); BILIRUBIN,TOTAL 1.9 MG/DL (0.1-1.0); BLOOD UREA NITROGEN 7 MG/DL (7-18); BUN/CREATININE RATIO 6.3 (5.4-32.0); CHLORIDE 103 MMOL/L (99-107); CREATININE 1.12 MG/DL (0.60-1.10); GLUCOSE 133 MG/DL (70-104); LIPASE 390 U/L (73-393); MAGNESIUM 1.9 MG/DL (1.5-2.4); PHOSPHORUS 3.3 MG/DL (2.3-4.5); POTASSIUM 3.7 MMOL/L (3.5-5.1); SODIUM 139 MMOL/L (135-145); TOTAL CARBON DIOXIDE 27.8 MMOL/L (24-32); TOTAL PROTEIN 6.9 G/DL (6.4-8.2); eGFR 74 ML/MIN
[2021-04-23] MEDS: K and/or MAG REPLACEMENT MC SCH ×2 (08:00→20:00)
[2021-04-23] MEDS: pantoprazole 40 MG vial IV SCH (08:39)
[2021-04-23] MEDS: folic acid 1mg tablet PO SCH (08:39)
[2021-04-23] MEDS: heparin, porcine 5000 units/ml vial SQ SCH ×2 (08:39→21:01)
[2021-04-23] MEDS: multivitamins, therapeutics tablet PO SCH (08:39)
[2021-04-23] MEDS: thiamine 100mg tablet PO SCH (08:40)
[2021-04-23 12:55] LABS: PARTIAL THROMBOPLASTIN TIME 30 SECONDS (22-32)
--- NOTE | 2021-04-23 17:06 | NUR ---
Problems reprioritized. Patient report given, questions answered & plan of care reviewed with OTTO GODFREY IN [employer].
[2021-04-23] MEDS ORDERED: ringers solution, lacted 1,000 ML IV SCH (17:15)
[2021-04-23] MEDS ORDERED: meperidine/PF 25mg/ml syringe IV PRN ×2 (17:15)
[2021-04-23] MEDS ORDERED: morphine 4 MG/ML inj SYRINge IV PRN (17:15)
[2021-04-23] MEDS ORDERED: morphine 2 MG/ML inj. syringe IV PRN (17:15)
[2021-04-23] MEDS ORDERED: ondansetron/PF 4mg/2ml inj IV PRN (17:15)
[2021-04-23] MEDS ORDERED: proCHLORperazine 10 MG/2 ml inj IV PRN (17:15)
[2021-04-23] MEDS ORDERED: sevoflurane 250ml liquid IH ONE (17:28)
[2021-04-23] MEDS ORDERED: midazolam 1 mg/ML 2ml injection ONE (17:34)
[2021-04-23] MEDS ORDERED: fentaNYL /PF 50mcg/ml 5ml ampule ONE (17:34)
[2021-04-23] MEDS ORDERED: propofol inj 20 ML IV ONE (17:36)
[2021-04-23] MEDS ORDERED: BUPIVAcaine/PF 2.5mg/ml (0.25%) 10ml vial ONE (17:56)
[2021-04-23] MEDS ORDERED: rocuronium 10mg/ml inj IV ONE (18:24)
[2021-04-23] MEDS ORDERED: neostigmine methylsulfate 1 MG/ML 10ml vial ONE (18:24)
[2021-04-23] MEDS ORDERED: ondansetron/PF 4mg/2ml inj ONE (18:24)
[2021-04-23] MEDS ORDERED: glycopyrrolate 0.2mg/ml inj ONE (18:24)
[2021-04-23] MEDS ORDERED: dexamethasone sod phosphate 4mg/ml inj. ONE (18:24)
--- NOTE | 2021-04-23 18:34 | NUR ---
Problems reprioritized. Patient report given, questions answered & plan of care reviewed with OTTO GILBERT.
--- NOTE | 2021-04-23 18:42 | NUR ---
Received from OR via , accompanied by Anesthesiologist DR POWELL and report given by Anesthesiolgist. PT PRESENTS WITH PIV 22G LEFT HAND, ABD DRESSING DRY AND INTACT. VSS. Addendum: 04/23/21 at 1849 by Fatou Ruff RN, RN Amended: Links added.
[2021-04-23] MEDS: meperidine/PF 25mg/ml syringe IV PRN ×2 (18:58→19:35)
[2021-04-23] MEDS ORDERED: LORazepam 1 MG tablet PO PRN (19:25)
[2021-04-23] MEDS ORDERED: LORazepam 2 mg/ml vial IV PRN (19:25)
--- NOTE | 2021-04-23 20:02 | NUR ---
PATIENT TAKIN TO ROOM WITH ALL BELONGINGS AND HOOKED UP TO MONITORS IN ROOM AND REPORT GIVEN TO VLADIMIR MENJIVAR WHO HAS TAKEN OVER PATIENT CARE. Addendum: 04/23/21 at 2015 by Fatou Ruff RN RN Amended: Links added.
[2021-04-23] MEDS: morphine 2 MG/ML inj. syringe IV PRN (23:45)
[2021-04-24 02:00] VITALS: BP 120/76
[2021-04-24] MEDS: morphine 2 MG/ML inj. syringe IV PRN (03:41)
[2021-04-24 06:00] VITALS: BP 107/70
[2021-04-24] MEDS ORDERED: pantoprazole 40mg Tablet.DR PO SCH (07:30)
[2021-04-24 07:58] LABS: EOSINOPHILS # (AUTO) 0.2 X10'3 (0-0.9); EOSINOPHILS % (AUTO) 3.8 % (0-6); LYMPHOCYTES # (AUTO) 1.3 X10'3 (1.1-4.8); LYMPHOCYTES % (AUTO) 25.5 % (21-51); MEAN CORPUSCULAR HEMOGLOBIN 31.5 PG (27.0-31.0); MEAN CORPUSCULAR HGB CONC 34.2 g/dL (33.0-36.5); MEAN CORPUSCULAR VOLUME 91.9 FL (78-98); MEAN PLATELET VOLUME 7.9 FL (7.4-10.4); MONOCYTES # (AUTO) 0.5 X10'3 (0-0.9); MONOCYTES % (AUTO) 10.6 % (2-12); NEUTROPHILS # (AUTO) 2.9 X10'3 (1.8-7.7); NEUTROPHILS % (AUTO) 59.1 % (42-75); PLATELET COUNT 295 X10'3 (140-440); RED BLOOD COUNT 4.13 X10'6 (4.70-6.10); RED CELL DISTRIBUTION WIDTH 13.5 % (11.5-14.5)
[2021-04-24] MEDS: K and/or MAG REPLACEMENT MC SCH (08:00)
[2021-04-24 08:05] LABS: ALANINE AMINOTRANSFERASE 44 U/L (12-78); ALBUMIN 3.2 G/DL (3.4-5.0); ALBUMIN/GLOBULIN RATIO 0.7 (1.1-1.5); ALKALINE PHOSPHATASE 142 IU/L (46-116); AMYLASE 117 U/L (25-115); ANION GAP 11 (8-16); ASPARTATE AMINO TRANSFERASE 33 U/L (10-37); BILIRUBIN,TOTAL 1.3 MG/DL (0.1-1.0); BLOOD UREA NITROGEN 9 MG/DL (7-18); BUN/CREATININE RATIO 8.9 (5.4-32.0); CALCIUM 9.2 MG/DL (8.5-10.1); CHLORIDE 102 MMOL/L (99-107); CREATININE 1.01 MG/DL (0.60-1.10); GLUCOSE 85 MG/DL (70-104); LIPASE 339 U/L (73-393); MAGNESIUM 1.9 MG/DL (1.5-2.4); PHOSPHORUS 3.8 MG/DL (2.3-4.5); POTASSIUM 3.7 MMOL/L (3.5-5.1); SODIUM 138 MMOL/L (135-145); TOTAL CARBON DIOXIDE 25.1 MMOL/L (24-32); TOTAL PROTEIN 7.5 G/DL (6.4-8.2); eGFR 83 ML/MIN
[2021-04-24] MEDS: folic acid 1mg tablet PO SCH (08:19)
[2021-04-24] MEDS: multivitamins, therapeutics tablet PO SCH (08:19)
[2021-04-24] MEDS: thiamine 100mg tablet PO SCH (08:19)
[2021-04-24] MEDS: piperacillin/tazo 3.375gm/50ml 50 ML IV SCH ×2 (08:20)
[2021-04-24] MEDS: HYDROcodone/acetaminophen 10/325mg tab PO PRN (08:20)
[2021-04-24] MEDS: heparin, porcine 5000 units/ml vial SQ SCH (08:20)
[2021-04-24 10:00] VITALS: BP 109/80
[2021-04-24] MEDS ORDERED: THIA50TA10 PO (10:38)
[2021-04-24] MEDS ORDERED: FOLI0.4T6 PO (10:38)
[2021-04-24] MEDS ORDERED: HYDR-3965 PO (10:38)
[2021-04-24] MEDS ORDERED: PANT40TA54 PO (10:38)
[2021-04-24] MEDS ORDERED: MULT-25 PO (10:38)
--- NOTE | 2021-04-24 11:10 | NUR ---
Spoke with MD Montoya surgeon. Pt. OK to Discharge.
--- NOTE | 2021-04-24 11:20 | NUR ---
DISCHARGE NOTE: Reviewed discharge paperwork with pt. IV DC'd, cannula intact, bandage applied. Pt. had the opportunity to ask questions. Pt. able to walk independently. Instructions on post-op care given. Incisional care instructions given. Pt. knows to f/u with Ramon and has his office contact number. Pt. escorted out of hospital downstairs to discharge home.
[2021-04-25] MEDS ORDERED: LORazepam 2 mg/ml vial IV PRN (19:25)
[2021-04-25] MEDS ORDERED: LORazepam 1 MG tablet PO PRN (19:25)
== END 2021-04-24 12:25 | disposition home or self-care (01) | DRG 263 ==
LOC: ER 20:00 → ED HOLD 21:49 → ORTHO 4S 04-21 19:50
PROVIDERS: ADMIT Internal Medicine; ATTEND Family Medicine
PROC: BW211ZZ Computerized Tomography (CT Scan) of Abdomen and Pelvis using Low Osmolar Contrast (ICD-10-PCS; 2021-04-20)
PROC: 0FT44ZZ Resection of Gallbladder, Percutaneous Endoscopic Approach (ICD-10-PCS; principal; 2021-04-23 17:28)
DX: K85.10 Biliary acute pancreatitis without necrosis or infection (principal); N18.30 Chronic kidney disease, stage 3 unspecified; K80.10 Calculus of gallbladder with chronic cholecystitis without obstruction; F10.10 Alcohol abuse, uncomplicated; K85.20 Alcohol induced acute pancreatitis without necrosis or infection; K86.1 Other chronic pancreatitis; K86.3 Pseudocyst of pancreas; Z87.442 Personal history of urinary calculi; Z87.891 Personal history of nicotine dependence; Z20.822 Contact with and (suspected) exposure to COVID-19
CPT/HCPCS: 36415; 71045; 74177; 80053; 80061; 80305; 81003; 82150; 82948; 83036; 83605; 83690; 83735; 84100; 85025; 85610; 85730; 87040; 87081; 87635; 96374; 96375; 97116; 97161; 97530; 99285; A4215; A4618; A7000; C8901; C9113; G0378; J1100; J1644; J2175; J2250; J2270; J2405; J2543; J2704; J2710; J3010; J3411; J3490; J7030; J7042; J7120; Q9967